=== PATIENT | male | born 1970 | race Caucasian/White ===

== ENCOUNTER 2024-08-10 09:41 | Emergency (ER) | payer OTHER, SELFPAY ==
[2024-08-10 09:44] VITALS: BP 166/93
--- NOTE | 2024-08-10 11:19 | ED.GENMED ---
History of Present Illness
General
Chief Complaint: Chest Pain
Time Seen by Provider: 08/10/24 11:07
History of Present Illness
History of Present Illness:
53-year-old male history of hypertension presenting with left-sided nonpleuritic nonexertional chest pain for the past 1 week. Patient states that rash appeared a few days ago. Patient states he to be seen by his PCP who ordered a chest x-ray that
was unremarkable. Patient denies fever, chills, cough or leg pain. Patient states pain got worse while driving to work today prompting ED arrival.
Phy Exam
Physical Exam
Physical Exam:
General: Alert, no acute distress
Head: NCAT
Eyes: clear conjunctiva
Neck: supple
Cardiac: regular rate and rhythm, no murmur
Lungs: clear to auscultation bilaterally. No wheezes, rales, or rhonchi. Speaking full unlabored sentences. No respiratory distress.
Abdomen: soft, nondistended nontender. No rebound or guarding.
MSK: no lower extremity edema bilaterally. No deformity
Skin: warm, dry. Erythematous vesicular rash on single dermatome left chest wall extending to the left back unilateral,does not cross midline
Neuro: Alert and oriented x3. no focal deficits
Scores
Heart Score for Chest Pain Patients
STEMI patient?: No
History: Slightly or Non-Suspicious
ECG: Normal
Age: >45 - <65 years
Risk Factors: No Risk Factors
Troponin: </= Normal Limit (did not test)
Heart Score for Chest Pain Patients: 1
Heart Score Risk: 2.5% MACE over next 6 weeks
Course
Orders/Labs/Results
Orders:
Orders
08/10/24 09:43
Electrocardiogram (*1) Urgent
Reason for Study: Chest Pain
EKG- Treatment ONCE
08/10/24 11:20
Acyclovir [Zovirax] 800 mg PO NOW STA
Vital Signs
Initial and Last Documented VS:
Initial Vital Signs
Temp Pulse Resp BP Pulse Ox
98.6 F 73 20 166/93 98
08/10/24 09:44 08/10/24 09:44 08/10/24 09:44 08/10/24 09:44 08/10/24 09:44
Last Documented Vital Signs
Temp Pulse Resp BP Pulse Ox
98.6 F 69 18 166/93 98
08/10/24 09:44 08/10/24 11:30 08/10/24 11:30 08/10/24 09:44 08/10/24 11:30
MDM/Problems Addressed
MDM/Problems Addressed:
53-year-old male history of hypertension presenting with left-sided chest pain and rash starting last week. Patient states he he was seen by his PCP ordered chest x-ray that was reportedly negative. Patient denies fever, chills, shortness of
breath or cough. On physical exam, patient has erythematous vesicular rash to left chest wall extending to the left back and single dermatome consistent with shingles. Otherwise lungs clear, heart regular rate and rhythm. Vital stable. Suspect
chest pain secondary to shingles. Will start on acyclovir. Stable for discharge with PCP follow-up
*EKG
Interpreted by ED Provider?: Yes (EKG shows normal sinus rhythm at 70 bpm with IN 196 QTc 442 no acute ischemic)
*Critical Care Note
Total Time (30-74mins, 75-104mins- exclusive of procedures): Not Applicable
ED Attending Note
-
Portions of this chart may have been created with voice recognition software.� Occasional wrong word or��sound alike� substitutions may have occurred due to the inherent limitations of voice recognition software.
Discharge Plan
Departure
Patient Disposition: Home (Routine Discharge)
Date of Disposition: 08/10/24
Time of Disposition: 11:29
Patient with high blood pressure during this ER visit?: Yes
Discharge Problem:
Shingles
Instructions: Shingles
Prescriptions:
New
acyclovir 800 mg tablet
800 mg PO .5 times daily Qty: 35 0RF
Activity Restrictions/Additional Instructions:
Take acyclovir 5 times daily for the next 7 days
Take Tylenol and 175 mg every 6 hours and/or ibuprofen 800 mg every 8 hours with food as needed for pain
Follow-up with primary care doctor in 1 to 2 days
Return to emergency room for fever, shortness of breath or new/worse symptoms
Interventions
Interventions:
*Risk Screen - Suicide Last Done: 08/10/24 09:44
*General Assessment Last Done: 08/10/24 09:44
*Nursing Disposition Last Done: 08/10/24 12:11
ED- Cardiac Assessment Last Done: 08/10/24 11:47
Discharge Date and Time
Discharge Date/Time: 08/10/24 12:11
Print Language: YI
[2024-08-10] MEDS: ZOVIRAX 800 MG PO (11:34)
== END 2024-08-10 12:11 | disposition home or self-care (01) ==
LOC: EMR 09:41
PROVIDERS: EMERGENCY PHYSICIAN Emergency Medicine; FAMILY PHYSICIAN Internal Medicine
DX: B02.9 Zoster without complications (principal); I10 Essential (primary) hypertension
CPT/HCPCS: 99283; 93005